=== PATIENT | female | born 1945 | race Caucasian/White ===

== ENCOUNTER 2019-07-03 | Emergency (ER) | payer MEDICARE ==
[~2019-07-03] MED LIST: AMLOD/BENAZP1 CA2 PO; CALCIUM + D600 MG PO; D-3-55000 UNIT PO; FOSAMAX40 MG OR; L-LYSINE500 M2 PO; LOSARTAN/HCT1 TA1 PO; M2 MAGNESIUM100 MG OR; MEDDOSEPAK PO; MULTIVITAMIN OR; SIMVASTATIN40 MG PO; TRIAMCINOLON0.11 EX; ZITHROMAX500 MG PO
[2019-07-03] MEDS ORDERED: CODEINE/GUAIFEN1 SOL PO (08:43)
[2019-07-03] MEDS ORDERED: TAM75CAP PO (08:43)
== END 2019-07-03 09:10 | disposition home or self-care (01) ==
DX: I10 Essential (primary) hypertension (principal); J10.1 Influenza due to other identified influenza virus with other respiratory manifestations

== ENCOUNTER 2019-09-04 | Emergency (ER) | payer OTHER, MEDICARE ==
[~2019-09-04] MED LIST changes: +CODEINE/GUAIFEN1 SOL PO; +TAM75CAP PO
[2019-09-04] MEDS ORDERED: MULTIVITAMI1 PO (11:40)
[2019-09-04] MEDS ORDERED: VOLTAREN - GENE75 MG PO (11:54)
== END 2019-09-04 12:00 | disposition home or self-care (01) ==
DX: S86.911A Strain of unspecified muscle(s) and tendon(s) at lower leg level, right leg, initial encounter (principal); M17.11 Unilateral primary osteoarthritis, right knee; I10 Essential (primary) hypertension; X50.0XXA Overexertion from strenuous movement or load, initial encounter; Y93.89 Activity, other specified; Y92.89 Other specified places as the place of occurrence of the external cause; Y99.0 Civilian activity done for income or pay